=== PATIENT | female | born 1965 | race Two or more races ===

== ENCOUNTER 2019-08-29 14:04 | Outpatient (CLI) | payer OTHER ==
[~2019-08-29 14:04] MED LIST: ACETAMINOOPHEN-1 TAB PO; CATAFLAM50 MG PO; CIPRO500 MG PO; SURFAK240 M1 PO
== END 2019-08-29 14:14 | disposition home or self-care (01) ==
LOC: RAD 14:04
DX: M54.17 Radiculopathy, lumbosacral region (principal); M25.551 Pain in right hip

== ENCOUNTER 2020-07-27 01:50 | Emergency (ER) | payer OTHER ==
[~2020-07-27] VITALS: Ht 152.4 cm; Wt 62.6 kg
[2020-07-27] MEDS ORDERED: DIOVAN160 M1 (02:07)
[2020-07-27] MEDS ORDERED: LEVOTHYROXINE25 MCG (02:07)
== END 2020-07-27 03:56 | disposition home or self-care (01) ==
LOC: ER 01:50
DX: I16.0 Hypertensive urgency (principal); I10 Essential (primary) hypertension

== ENCOUNTER 2020-08-06 13:25 | Outpatient (CLI) | payer OTHER ==
[~2020-08-06 13:25] MED LIST changes: +DIOVAN160 M1; +LEVOTHYROXINE25 MCG
== END 2020-08-06 13:37 | disposition home or self-care (01) ==
LOC: RAD 13:25
PROVIDERS: ATTEND Ophthalmology
DX: R91.8 Other nonspecific abnormal finding of lung field (principal)

== ENCOUNTER → 2021-04-25 | Outpatient (CLI) | payer OTHER | END | disposition home or self-care (01) | LOC: LAB 11:39 | DX: Z20.828 Contact with and (suspected) exposure to other viral communicable diseases (principal) ==

== ENCOUNTER 2021-05-22 06:51 | Day surgery (SDC) | payer OTHER | END 2021-05-22 12:00 | disposition home or self-care (01) | LOC: CIR.AMB 06:51 | PROVIDERS: ATTEND Surgery | DX: K62.89 Other specified diseases of anus and rectum (principal); Z20.822 Contact with and (suspected) exposure to COVID-19; Z12.11 Encounter for screening for malignant neoplasm of colon ==

== ENCOUNTER 2021-05-28 16:00 | Outpatient (CLI) | payer OTHER | END 2021-05-28 17:00 | disposition home or self-care (01) | LOC: ASH CLINIC 16:00 | PROVIDERS: ATTEND Emergency Medicine | DX: U07.1 COVID-19 (principal); Z23 Encounter for immunization ==

== ENCOUNTER 2021-09-02 01:00 | Outpatient (CLI) | payer OTHER | END 2021-09-02 01:30 | disposition home or self-care (01) | LOC: PPH VACUNA 01:00 | PROVIDERS: ATTEND Emergency Medicine Pediatric Emergency Medicine | DX: Z23 Encounter for immunization (principal) ==

== ENCOUNTER 2021-11-18 12:27 | Outpatient (CLI) | payer OTHER | END 2021-11-18 12:29 | disposition home or self-care (01) | LOC: RAD 12:27 | PROVIDERS: ATTEND Plastic Surgery Surgery of the Hand | DX: Z01.818 Encounter for other preprocedural examination (principal) ==

== ENCOUNTER → 2022-03-21 11:56 | Outpatient (CLI) | payer OTHER | END | disposition home or self-care (01) | LOC: LAB 11:56 | PROVIDERS: ATTEND Plastic Surgery Surgery of the Hand | DX: D68.8 Other specified coagulation defects (principal); E78.00 Pure hypercholesterolemia, unspecified; E83.51 Hypocalcemia; B97.89 Other viral agents as the cause of diseases classified elsewhere; A64 Unspecified sexually transmitted disease; K71.6 Toxic liver disease with hepatitis, not elsewhere classified; N91.2 Amenorrhea, unspecified; E03.9 Hypothyroidism, unspecified ==

== ENCOUNTER 2022-03-24 16:02 | Outpatient (CLI) | payer OTHER | END 2022-03-24 16:04 | disposition home or self-care (01) | LOC: LAB 16:02 | PROVIDERS: ATTEND Plastic Surgery Surgery of the Hand | DX: Z20.828 Contact with and (suspected) exposure to other viral communicable diseases (principal); R05.9 Cough, unspecified; Z20.818 Contact with and (suspected) exposure to other bacterial communicable diseases; Z11.52 Encounter for screening for COVID-19 ==

== ENCOUNTER 2022-07-28 10:57 | Outpatient (CLI) | payer OTHER | END 2022-07-28 11:06 | disposition home or self-care (01) | LOC: LAB 10:57 | PROVIDERS: ATTEND Internal Medicine Cardiovascular Disease | DX: N39.0 Urinary tract infection, site not specified (principal); D64.9 Anemia, unspecified; E03.9 Hypothyroidism, unspecified; E78.5 Hyperlipidemia, unspecified; E11.9 Type 2 diabetes mellitus without complications; E55.9 Vitamin D deficiency, unspecified; M10.9 Gout, unspecified ==

== ENCOUNTER 2023-06-02 12:49 | Outpatient (CLI) | payer OTHER | END 2023-06-02 13:41 | disposition home or self-care (01) | LOC: MAMO-SONO 12:49 | PROVIDERS: ATTEND Surgery | DX: N60.11 Diffuse cystic mastopathy of right breast (principal); N60.12 Diffuse cystic mastopathy of left breast; Z12.31 Encounter for screening mammogram for malignant neoplasm of breast ==

== ENCOUNTER 2023-06-10 10:54 | Outpatient (CLI) | payer OTHER ==
[2023-06-10 11:45] LABS: HEMOGLOBIN 11.7 g/dL (12.0-15.00); MEAN CELL VOLUME 92.6 fL (80.00-100.00); MEAN CORPUSCULAR HEMOGLOBIN 30.9 pg (27.00-32.0); MEAN CORPUSCULAR HGB CONC 33.3 g/dl (32.0-36.0); PLATELET COUNT 203 K/uL (150-450); RED BLOOD COUNT 3.78 M/uL (4.00-6.00)
[2023-06-10 11:47] LABS: PH,URINE 5.5 (5.0-8.0); URINE APPEARANCE Cloudy; URINE BILIRRUBIN Negative (NEGATIVE); URINE BLOOD Negative; URINE COLOR Dark Yellow; URINE GLUCOSE Negative (NEGATIVE); URINE LEUKOCYTE Moderate; URINE NITRATE Negative; URINE PROTEIN Trace (NEGATIVE)
[2023-06-10 11:52] LABS: URINE BACTERIA 98.2 uL (0.0-1933); URINE EPITHELIAL CELLS 39.4 uL (0.0-38.8); URINE RBC 2.2 uL (0.0-20.8); URINE WBC 160.7 uL (0.0-23.2)
[2023-06-10 12:30] LABS: URINE MUCUS HEAVY
[2023-06-10 12:32] LABS: ALBUMIN 3.9 gm/dL (3.4-5.0); BILIRUBIN TOTAL 0.53 mg/dL (0.3-1.2); CALCIUM 8.9 mg/dL (8.5-10.1); CHOL HDL RATIO 2.5 (0-5.0); CREATININE SERUM 1.05 mg/dL (0.55-1.02); GFR 53.64; GLOBULINA 3.4 G/DL (2.4-3.5); POTASSIUM 3.69 mEq/L (3.5-5.1); TOTAL PROTEIN 7.3 gm/dL (6.4-8.2); TSH 2.45 uIU/mL (0.358-3.74)
== END 2023-06-10 11:12 | disposition home or self-care (01) ==
LOC: LAB 10:54
PROVIDERS: ATTEND Internal Medicine Cardiovascular Disease
DX: D64.9 Anemia, unspecified (principal); N39.0 Urinary tract infection, site not specified; R10.9 Unspecified abdominal pain; E03.9 Hypothyroidism, unspecified; E78.5 Hyperlipidemia, unspecified; E55.9 Vitamin D deficiency, unspecified; R80.9 Proteinuria, unspecified; E11.9 Type 2 diabetes mellitus without complications

== ENCOUNTER 2023-06-17 08:52 | Outpatient (CLI) | payer OTHER ==
[2023-06-17 10:05] LABS: PH,URINE 6.5 (5.0-8.0); URINE APPEARANCE Clear; URINE BILIRRUBIN Negative (NEGATIVE); URINE BLOOD Negative; URINE COLOR Dark Yellow; URINE GLUCOSE Negative (NEGATIVE); URINE LEUKOCYTE Trace; URINE NITRATE Negative; URINE PROTEIN Trace (NEGATIVE); URINE UROBILINOGEN 0.2 E.U./dl
[2023-06-17 10:31] LABS: URINE EPITHELIAL CELLS 6.6 uL (0.0-38.8); URINE RBC 3.1 uL (0.0-20.8); URINE WBC 27.8 uL (0.0-23.2)
== END 2023-06-17 13:19 | disposition home or self-care (01) ==
LOC: LAB 08:52
DX: R80.9 Proteinuria, unspecified (principal); Z88.1 Allergy status to other antibiotic agents

== ENCOUNTER 2023-07-21 07:42 | Outpatient (CLI) | payer OTHER | END 2023-07-21 07:53 | disposition home or self-care (01) | LOC: SONOGRAMA 07:42 | PROVIDERS: ATTEND Internal Medicine Nephrology | DX: N18.30 Chronic kidney disease, stage 3 unspecified (principal); R10.9 Unspecified abdominal pain ==

== ENCOUNTER 2023-09-01 09:40 | Outpatient (CLI) | payer OTHER | END 2023-09-01 14:32 | disposition home or self-care (01) | LOC: SONOGRAMA 09:40 | DX: R16.0 Hepatomegaly, not elsewhere classified (principal) ==

== ENCOUNTER 2023-09-16 10:37 | Outpatient (CLI) | payer OTHER | END 2023-09-16 15:00 | disposition home or self-care (01) | LOC: LAB 10:37 | PROVIDERS: ATTEND Emergency Medicine Pediatric Emergency Medicine | DX: J06.9 Acute upper respiratory infection, unspecified (principal); U07.1 COVID-19; Z20.822 Contact with and (suspected) exposure to COVID-19 ==

== ENCOUNTER 2023-10-01 16:32 | Outpatient (CLI) | payer OTHER | END 2023-10-01 16:33 | disposition home or self-care (01) | LOC: PRENATAL 16:32 | PROVIDERS: ATTEND Obstetrics & Gynecology Maternal & Fetal Medicine | DX: Z76.1 Encounter for health supervision and care of foundling (principal) ==

== ENCOUNTER → 2023-10-28 15:05 | Outpatient (CLI) | payer OTHER | END | disposition home or self-care (01) | LOC: PRENATAL 15:05 | PROVIDERS: ATTEND Obstetrics & Gynecology Maternal & Fetal Medicine | DX: Z76.1 Encounter for health supervision and care of foundling (principal) ==

== ENCOUNTER 2024-03-02 08:29 | Outpatient (CLI) | payer OTHER ==
[2024-03-02 09:13] LABS: PH,URINE 5.5 (5.0-8.0); URINE APPEARANCE Clear; URINE BILIRRUBIN Negative (NEGATIVE); URINE BLOOD Negative; URINE COLOR Yellow; URINE GLUCOSE Negative (NEGATIVE); URINE LEUKOCYTE Small; URINE NITRATE Negative; URINE PROTEIN Trace (NEGATIVE); URINE UROBILINOGEN 0.2 E.U./dl
[2024-03-02 09:17] LABS: URINE BACTERIA 28.9 uL (0.0-1933); URINE EPITHELIAL CELLS 18.3 uL (0.0-38.8); URINE RBC 4.1 uL (0.0-20.8); URINE WBC 19.7 uL (0.0-23.2)
[2024-03-02 09:20] LABS: HEMOGLOBIN 12.3 g/dL (12.0-15.00); MEAN CELL VOLUME 91.9 fL (80.00-100.00); MEAN CORPUSCULAR HEMOGLOBIN 31.3 pg (27.00-32.0); PLATELET COUNT 211 K/uL (150-450); RED BLOOD COUNT 3.92 M/uL (4.00-6.00); RED CELL DISTRIBUTION WIDTH 14.2 % (11.5-14.5)
[2024-03-02 10:20] LABS: ALBUMIN 4.2 gm/dL (3.4-5.0); BILIRUBIN TOTAL 0.67 mg/dL (0.3-1.2); CHOL HDL RATIO 2.2 (0-5.0); CREATININE SERUM 0.99 mg/dL (0.55-1.02); GFR 57.21; GLOBULINA 3.2 G/DL (2.4-3.5); POTASSIUM 3.7 mEq/L (3.5-5.1); TOTAL PROTEIN 7.4 gm/dL (6.4-8.2); TSH 2.63 uIU/mL (0.358-3.74); URIC ACID 4.6 mg/dL (2.5-7.5)
== END 2024-03-02 08:30 | disposition home or self-care (01) ==
LOC: LAB 08:29
PROVIDERS: ATTEND Internal Medicine Cardiovascular Disease
DX: D64.9 Anemia, unspecified (principal); N39.0 Urinary tract infection, site not specified; R10.9 Unspecified abdominal pain; E03.9 Hypothyroidism, unspecified; E78.5 Hyperlipidemia, unspecified; E55.9 Vitamin D deficiency, unspecified; R80.9 Proteinuria, unspecified; E11.9 Type 2 diabetes mellitus without complications

== ENCOUNTER 2025-05-11 08:57 | Outpatient (CLI) | payer OTHER | END 2025-05-11 09:00 | disposition home or self-care (01) | LOC: TOM 08:57 | PROVIDERS: ATTEND Internal Medicine Cardiovascular Disease | DX: G43.701 Chronic migraine without aura, not intractable, with status migrainosus (principal); Z88.1 Allergy status to other antibiotic agents ==

== ENCOUNTER 2025-05-31 10:48 | Outpatient (CLI) | payer OTHER ==
[2025-06-02] MEDS ORDERED: METHOCARBAMOL500 MG PO (09:42)
== END 2025-05-31 11:43 | disposition home or self-care (01) ==
LOC: TOM 10:48
DX: R51.9 Headache, unspecified (principal)